=== PATIENT | male | born 1945 | race Caucasian/White ===

== ENCOUNTER → 2017-02-05 | Day surgery (SDC) | payer MEDICARE, BC ==
[~2017-02-05] MED LIST: BUPIVACAINE/EPINEPHRINE 0.5% 50 ML VIAL ONE; KETOROLAC TROMETHAMINE 30 MG/ML (IVP) VIAL IV PUSH ONE; LACTATED RINGER'S 1,000 ML BAG IV ONE; ONDANSETRON HCL 4 MG/2 ML VIAL IV PUSH ONE; PROPOFOL 200 MG/20 ML AMP IV ONE; ceFAZolin INJ 1,000 MG VIAL ONE
--- NOTE | 2017-02-05 15:35 | TN ---
cc: ÁLVARO BREWER M.D. DATE OF SURGERY: 02/05/2017 PREOPERATIVE DIAGNOSIS 1. Left inguinal hernia. 2. Epidermal inclusion cyst, right lateral back. POSTOPERATIVE DIAGNOSIS 1. Left inguinal hernia. 2. Epidermal inclusion cyst, right lateral back. PROCEDURE 1. Laparoscopic repair left inguinal hernia with mesh. 2. Excision of epidermal inclusion cyst right lateral back, 2 cm diameter, with two-layer closure. SURGEON Dr. Álvaro Brewer ANESTHESIA General. INDICATIONS This is a very pleasant 71-year-old gentleman who was sent to me in consultation by Dr. Hernandez for evaluation of left inguinal hernia. The patient has noted a gradually increasing size left inguinal hernia over the last four years. It creates discomfort. He had a prior right inguinal hernia repair in the 80s and a prior left shoulder replacement. The patient has also a 2 cm epidermal inclusion cyst on the right lateral back he wished to have excised. INTRAOPERATIVE FINDINGS Large left indirect inguinal hernia with a spermatic cord lipoma and indirect inguinal hernia sac. Epidermal inclusion cyst excised in its entirety and sent to pathology. ESTIMATED BLOOD LOSS Less than 15 mL. DESCRIPTION OF PROCEDURE IN DETAIL The patient was identified as Rey Salcedo, taken to the operating room and placed in supine position. Sequential compression devices were placed on bilateral lower extremities. Following induction of adequate general anesthesia the patient's abdomen was prepped and draped in usual sterile fashion with Betadine. A timeout procedure was performed. Following completion of the timeout procedure to everyone's satisfaction within the room, 0.5% Marcaine with epinephrine was placed at each incision site. An infraumbilical 2 cm incision was carried out with a scalpel and dissection continued posteriorly to the level of the anterior rectus fascia. The anterior rectus fascia was incised on its medial border and a preperitoneal plane was developed with the surgeon's finger directed towards the pubic symphysis. A preperitoneal dissecting balloon was placed in the preperitoneal space and with the patient in slight Trendelenburg position under direct laparoscopic view, inflated to a total of 30 pumps. There was operative identification of the inferior epigastric vessels and indirect inguinal hernia sac. The balloon was desufflated and removed and a structural balloon trocar placed in the preperitoneal space, its balloon inflated with CO2 insufflation to a level of 11 mmHg ensued. The patient had two infraumbilical 5 mm trocars placed in the preperitoneal space under direct laparoscopic view after incision of the skin with a scalpel. Blunt dissection allowed for identification of Dylan's ligament and the inferior epigastric vessels. Lateral and posterior to the spermatic cord blunt dissection occurred to create a space. A large spermatic cord lipoma was reduced from the inguinal canal to the preperitoneal space. A small amount of bleeding was controlled with electrocautery. The anteromedial surface was examined and there was an obvious indirect inguinal hernia sac which was reduced to the base of the spermatic cord using the blunt graspers. A 4 x 6 inch piece of [employer] ProLite mesh was cut and an anterolateral slit placed around the spermatic cord and tacked in position with the capture device. The tacks were placed to approximate the anterolateral slit on the inferolateral border of Dylan's ligament and the superolateral border of the mesh. A 2 x 6 inch piece of the mesh was placed across the anterolateral slit and held in position with the capture device. Tacks were placed superolateral, inferomedial, superomedial and superolateral. Photographs were taken of the completed repair. The remaining local anesthetic was placed in the preperitoneal space. There was no evidence of bleeding. The 5 mm trocars were removed under direct visualization. There was no evidence of bleeding from the trocar sites. The inferolateral mesh was held against the anterior abdominal wall as the peritoneum and the preperitoneal fat lay against the mesh. The infraumbilical trocar was removed. The anterior rectus fascial incision was closed with running 2-0 Vicryl suture. Port site skin incisions were approximated with 4-0 Monocryl subcuticular sutures. Dressings were applied with Mastisol and half-inch brown Steri-Strips. The patient tolerated this portion of the procedure without apparent complication. The patient was then placed in an oblique position with the superolateral right back exposed. This area of the superolateral right back was cleansed with Betadine, prepped and draped in the usual sterile fashion. A proposed elliptical incision horizontal along the skin lines was made with a marking pen and infiltrated with local anesthetic. The incision was carried out with a scalpel and the cyst was removed in its entirety along with some subcutaneous fatty tissue using the scalpel. Hemostasis was controlled with electrocautery. The wound was rinsed with saline. It was closed in two layers using 3-0 Vicryl and 4-0 Monocryl. Dressing was applied with Mastisol, half-inch brown Steri-Strips, gauze and Tegaderm. The patient tolerated the procedure without apparent complication. Sponge, needle, and instrument counts were correct at the end of the case. MD APPLE Newton/CAMRON /3:00 PM /3:18 PM
== END | disposition home or self-care (01) ==
LOC: ESDC 11:34
PROVIDERS: ATTEND Surgery Trauma Surgery
DX: K40.90 Unilateral inguinal hernia, without obstruction or gangrene, not specified as recurrent (principal); L72.0 Epidermal cyst; D17.6 Benign lipomatous neoplasm of spermatic cord
CPT/HCPCS: 00300; 00840; 11402; 12031; 49650; 88304; C1727; C1781; J0690; J1885; J2405; J3010; J7120